=== PATIENT | female | born 1970 | race Caucasian/White ===

== ENCOUNTER 2021-01-11 14:27 | Emergency (ER) | payer BC ==
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
== END 2021-01-11 15:29 | disposition home or self-care (01) ==
LOC: JD.ED 14:27
DX: Z02.83 Encounter for blood-alcohol and blood-drug test (principal); Z88.5 Allergy status to narcotic agent
CPT/HCPCS: 99282

== ENCOUNTER 2021-04-11 07:48 | Day surgery (SDC) | payer BC ==
[~2021-04-11 07:48] MED LIST: Lactated Ringers 1,000 ML IV SCH; Lidocaine 1%/Sod Bicarbonate in NS 8.4% 1 ML Syringe IDERM PRN; Sodium Chloride 0.9% 10 ML Syringe FLUSH PRN
[2021-04-11] MEDS ORDERED: Midazolam 1 MG/ML 2 ML SDV ONE (09:16)
[2021-04-11] MEDS ORDERED: Propofol 200 MG/20 ML SDV ONE ×2 (09:16→09:27)
--- NOTE | 2021-04-11 09:50 | PCM.PREANE ---
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.) Cardiovascular: No Symptoms Gastrointestinal: No Symptoms (GERD), Abdominal Pain (history of H Pylori with some sensitivity still present), Difficulty Swallowing Neurological: No Symptoms (Back pain/scoliosis/fibromyalgia/ Yuliana-Danios syndrome-connective tissue disorder.), Headache, Tingling (left shoulder with neck strain) Other: Reports: None, Sinus Problem (Allergic rhinitis), Neck Pain, Depression (history of sucicide attempt.), Anxiety - Physical Assessment NPO Status Date: 04/10/21 NPO Status Time: 22:30 Vital Signs: HR: 56 B/P: 98/60 Sat: 97% Resp: 12 Temp: 97.5 Height: 1.65 m Weight: 75 kg ASA Class: 2 Mental Status: Alert & Oriented x3 Airway Class: Mallampati = 2 Dentition: Reports: Normal Dentition, Caries Thyro-Mental Finger Breadths: 3 Mouth Opening Finger Breadths: 3 ROM/Head Extension: Full Lungs: Clear to Auscultation, Normal Respiratory Effort Cardiovascular: Regular Rate, Regular Rhythm, No Murmurs - Lab Values: All labs reviewed and noted and within acceptable ranges to proceed with procedure. - Allergies Allergies/Adverse Reactions: Allergies Allergy/AdvReac Type Severity Reaction Status Date / Time codeine Allergy Itching Verified 01/11/21 14:51 - Anesthesia Plan Pre-Op Medication Ordered: None - Acknowledgements Anesthesia Type Planned: MAC Pt an Appropriate Candidate for the Planned Anesthesia: Yes Alternatives and Risks of Anesthesia Discussed w Pt/Guardian: Yes Pt/Guardian Understands and Agrees with Anesthesia Plan: Yes PreAnesthesia Questionnaire HEENT History: Reports: Cataract, Other (See Below) Other HEENT History: Allergic rhinitis Cardiovascular History: Reports: None Respiratory History: Reports: Asthma Other Respiratory History: Exercise-induced bronchoconstriction Gastrointestinal History: Reports: GERD, Helicobacter Pylori Other Gastrointestinal History: Esophageal polyp Genitourinary History: Reports: None COBOL PROGRAMMER History: Reports: Dysfunctional Uterine Bleeding, Other (See Below) Other OB/BYN History: Tubal ligation, pelvic pain, vaginal d/c Musculoskeletal History: Reports: Arthritis, Back Pain, Chronic, Fibromyalgia Other Musculoskeletal History: Ehler's-Danios Syndrome, hypermobile joints Neurological History: Reports: Migraines Psychiatric History: Reports: Anxiety, Depression, Suicide Attempt Other Psychiatric History: ETOH abuse, sleep difficulties Endocrine/Metabolic History: Reports: None Hematologic History: Reports: None Immunologic History: Reports: None Oncologic (Cancer) History: Reports: None - Infectious Disease History Infectious Disease History: Reports: Chicken Pox - Past Surgical History Head Surgeries/Procedures: Reports: None HEENT Surgical History: Reports: None Cardiovascular Surgical History: Reports: None Respiratory Surgical History: Reports: None GI Surgical History: Reports: Appendectomy, EGD Female Surgical History: Reports: None Endocrine Surgical History: Reports: None Neurological Surgical History: Reports: None Oncologic Surgical History: Reports: None - SUBSTANCE USE Tobacco Use Within Last Twelve Months: Smokeless Tobacco Second Hand Smoke Exposure: No Recreational Drug Use History: No - HOME MEDS Home Medications: Home Meds FLUoxetine HCl [Prozac] 20 mg PO DAILY 01/11/21 [History] Gabapentin [Neurontin] 600 mg PO BEDTIME 01/11/21 [History] Acetaminophen [Tylenol] 650 mg PO BID PRN 04/10/21 [History] Albuterol [Ventolin HFA] 1 puff .XX Q4H PRN 04/10/21 [History] Albuterol [Ventolin HFA] 1 puff INH Q4H PRN 04/10/21 [History] Cholecalciferol (Vitamin D3) [Vitamin D] 10,000 unit PO DAILY 04/10/21 [History] Cyclobenzaprine [Flexeril] 5 - 10 mg PO BEDTIME PRN 04/10/21 [History] Lidocaine [Lidocaine 5%] 1 patch TOP DAILY PRN 04/10/21 [History] Magnesium 600 mg PO DAILY 04/10/21 [History] Multivitamin 1 tab PO DAILY 04/10/21 [History] Omeprazole 40 mg PO DAILY 04/10/21 [History] traZODone 50 mg PO BEDTIME 04/10/21 [History] - CURRENT (IN HOUSE) MEDS Current Meds: Current Medications Lactated Ringer's (Ringers, Lactated) 1,000 mls @ 125 mls/hr IV ASDIRECTED SUSHMA Stop: 04/11/21 18:00 Lidocaine/Sodium Bicarbonate (Lidocaine 1%/Sod Bicarbonate In Ns 8.4% 1 Ml Syringe) 0.25 ml IDERM ONETIME PRN PRN Reason: Prior to IV Start Stop: 04/11/21 18:00 Sodium Chloride (Sodium Chloride 0.9% 10 Ml Syringe) 10 ml FLUSH ASDIRECTED PRN PRN Reason: Keep Vein Open Stop: 04/11/21 18:00 Discontinued Medications Midazolam HCl (Midazolam 1 Mg/Ml 2 Ml Sdv) Confirm Administered Dose 2 mg .ROUTE .STK-MED ONE Stop: 04/11/21 09:17 Propofol (Propofol 200 Mg/20 Ml Sdv) Confirm Administered Dose 200 mg .ROUTE .STK-MED ONE Stop: 04/11/21 09:17 Propofol (Propofol 200 Mg/20 Ml Sdv) Confirm Administered Dose 200 mg .ROUTE .STK-MED ONE Stop: 04/11/21 09:28
--- NOTE | 2021-04-11 10:28 | PCM.PRNOTE ---
- Free Text/Narrative Note: Date: 04/11/2021 Procedure: diagnostic esophagogastroduodenoscopy Indication: dysphagia in patient with history of reflux esophagitis and esophageal squamous papilloma Endoscopist: Jose Roman MD Findings: small hiatal hernia with gross appearance of mild distal esophageal inflammation. Detailed Report: The patient was taken to the endoscopy suite and placed in left lateral decubitus position. Timeout was performed and monitored anesthesia care was initiated. A bite-block was placed. The endoscope was inserted into the mouth and advanced to the second portion of the duodenum with ease. Duodenal mucosa appeared normal. The scope was withdrawn into the stomach and gastric mucosa was carefully inspected. There is no evidence of gross inflammatory change or ulceration. On retroflexion, there appeared to be a very small sliding hiatal hernia. The scope was withdrawn into the distal esophagus. The Z-line appeared normal, however there appeared to be some minor gross inflammatory change of the distal esophagus just proximal to the Z-line. Biopsies were obtained of distal esophageal mucosa with cold forceps. The scope was slowly withdrawn and the esophagus was carefully inspected. No mucosal lesion was really appreciated, although there appeared to be small benign-appearing flat polypoid lesion which was biopsied with cold forceps. This was at about the mid esophagus. Air was suctioned from the stomach prior to withdrawal of the scope. Patient tolerated the procedure well.
--- NOTE | 2021-04-11 10:33 | PCM48HPAN ---
Post Anesthesia Note - EVALUATION WITHIN 48HRS OF ANESTHETIC Vital Signs in Normal Range: Yes Patient Participated in Evaluation: Yes Respiratory Function Stable: Yes Airway Patent: Yes Cardiovascular Function Stable: Yes Hydration Status Stable: Yes Pain Control Satisfactory: Yes Nausea and Vomiting Control Satisfactory: Yes Mental Status Recovered: Yes
== END 2021-04-11 11:40 | disposition home or self-care (01) ==
LOC: JD.SDS 07:48
PROVIDERS: ATTEND Surgery
DX: K20.0 Eosinophilic esophagitis (principal); K44.9 Diaphragmatic hernia without obstruction or gangrene; G47.9 Sleep disorder, unspecified; J45.909 Unspecified asthma, uncomplicated; Z88.6 Allergy status to analgesic agent; Z79.899 Other long term (current) drug therapy
CPT/HCPCS: 43239; J2250; J2704; J7120; 00731

== ENCOUNTER 2021-09-28 08:22 | Emergency (ER) | payer BC ==
[2021-09-28] MEDS ORDERED: Sodium Chloride 0.9% 1,000 ML IV ONE (09:09)
[2021-09-28] MEDS ORDERED: Sodium Chloride 0.9% 10 ML Syringe FLUSH PRN (09:10)
[2021-09-28] MEDS ORDERED: Ondansetron 4 MG/2 ML SDV IVPUSH ONE (09:23)
[2021-09-28 09:51] LABS: CORONAVIRUS COVID-19 NAA NEGATIVE (NEGATIVE)
[2021-09-28] MEDS ORDERED: Acetaminophen 325 MG Tab PO ONE (10:03)
[2021-09-28] MEDS ORDERED: cefTRIAXone 2 GM in Sodium Chloride 0.9% 100 ML IV ONE (10:55)
[2021-09-28] MEDS ORDERED: Metoclopramide 10 MG/2 ML SDV IVPUSH ONE (14:30)
== END 2021-09-28 14:40 | disposition home or self-care (01) ==
LOC: JD.ED 08:22
DX: N30.00 Acute cystitis without hematuria (principal); J45.909 Unspecified asthma, uncomplicated; K21.9 Gastro-esophageal reflux disease without esophagitis; Z88.5 Allergy status to narcotic agent; Z79.899 Other long term (current) drug therapy; Z20.822 Contact with and (suspected) exposure to COVID-19
CPT/HCPCS: 0240U; 36415; 71046; 74176; 80053; 81001; 83605; 85025; 87040; 87077; 87086; 87088; 87154; 87186; 96365; 96375; 99284; A9270; J0696; J2405; J2765; J7030

== ENCOUNTER 2021-09-29 16:27 | Inpatient (IN) | payer BC ==
[2021-09-29] MEDS ORDERED: Albuterol/Ipratropium 3.0-0.5 MG/3 ML Neb Soln NEB PRN (18:47)
[2021-09-29] MEDS ORDERED: Albuterol 6.7 GM Inhaler INH PRN (18:53)
[2021-09-29] MEDS ORDERED: hydrALAZINE 20 MG/ML SDV IVPUSH PRN (18:56)
[2021-09-29] MEDS: cefTRIAXone 1 GM in Sodium Chloride 0.9% 100 ML IV SCH (19:56)
[2021-09-29] MEDS ORDERED: Gabapentin 600 MG Tab PO SCH (21:00)
[2021-09-29] MEDS ORDERED: traZODone 50 MG Tab PO SCH (21:00)
[2021-09-29] MEDS: Acetaminophen 325 MG Tab PO PRN (21:04)
[2021-09-29] MEDS: Sodium Chloride 0.9% 1,000 ML IV SCH (21:47)
[2021-09-30] MEDS: oxyCODONE 5 MG Tab PO PRN ×3 (00:29→23:43)
[2021-09-30] MEDS: Morphine 2 MG/ML SYRINGE IVPUSH PRN ×2 (01:58→07:25)
[2021-09-30] MEDS ORDERED: Ferrous Sulfate 324 MG Tab.EC PO SCH (07:00)
[2021-09-30] MEDS ORDERED: Magnesium Hydroxide 400 MG/5 ML Susp 30 ML Cup PO ONE (08:41)
[2021-09-30] MEDS: FLUoxetine 20 MG Cap PO SCH (08:56)
[2021-09-30] MEDS ORDERED: Docusate Sodium 100 MG Cap PO PRN (10:10)
[2021-09-30] MEDS ORDERED: Lactulose Soln 10 GM/15 ML 30 ML UD Cup PO PRN (10:10)
[2021-09-30] MEDS: Promethazine 12.5 MG in Sodium Chloride 0.9% 50 ML IV PRN (10:12)
[2021-09-30] MEDS: Enoxaparin 40 MG/0.4 ML Syringe SUBCUT SCH (10:27)
[2021-09-30] MEDS ORDERED: Bisacodyl 10 MG Supp RECTAL ONE (10:45)
[2021-09-30] MEDS: Sodium Chloride 0.9% 1,000 ML IV SCH (11:41)
[2021-09-30] MEDS: Ferrous Sulfate 324 MG Tab.EC PO SCH ×2 (12:26→18:25)
[2021-09-30] MEDS: Pantoprazole 40 MG Tab.CR PO SCH (12:26)
[2021-09-30] MEDS: Multivitamin Tab PO SCH (12:26)
[2021-09-30] MEDS: Cholecalciferol (Vitamin D3) 5,000 UNIT Tab PO SCH (12:27)
[2021-09-30] MEDS: Acetaminophen 325 MG Tab PO PRN ×2 (15:33→23:44)
[2021-09-30] MEDS: cefTRIAXone 1 GM in Sodium Chloride 0.9% 100 ML IV SCH (18:25)
[2021-09-30] MEDS: traZODone 50 MG Tab PO SCH (21:28)
[2021-10-01] MEDS: Sodium Chloride 0.9% 1,000 ML IV SCH (00:37)
[2021-10-01] MEDS ORDERED: cefTRIAXone 2 GM in Sodium Chloride 0.9% 100 ML IV SCH (09:00)
[2021-10-01] MEDS: FLUoxetine 20 MG Cap PO SCH (09:01)
[2021-10-01] MEDS: Multivitamin Tab PO SCH (09:01)
[2021-10-01] MEDS: Cholecalciferol (Vitamin D3) 5,000 UNIT Tab PO SCH (09:02)
[2021-10-01] MEDS: Pantoprazole 40 MG Tab.CR PO SCH (09:02)
[2021-10-01] MEDS: Ferrous Sulfate 324 MG Tab.EC PO SCH ×2 (09:02→17:36)
[2021-10-01] MEDS: Enoxaparin 40 MG/0.4 ML Syringe SUBCUT SCH (09:03)
[2021-10-01] MEDS: Levofloxacin/Dextrose 5%-Water 750 MG in Premix Bag 1 BAG IV SCH (12:56)
[2021-10-01] MEDS: oxyCODONE 5 MG Tab PO PRN (16:15)
[2021-10-01] MEDS: Promethazine 12.5 MG in Sodium Chloride 0.9% 50 ML IV PRN (16:16)
[2021-10-01] MEDS: Acetaminophen 325 MG Tab PO PRN (20:17)
[2021-10-01] MEDS: traZODone 50 MG Tab PO SCH (20:30)
[2021-10-02] MEDS: FLUoxetine 20 MG Cap PO SCH (08:10)
[2021-10-02] MEDS: Pantoprazole 40 MG Tab.CR PO SCH (08:10)
[2021-10-02] MEDS: Ferrous Sulfate 324 MG Tab.EC PO SCH (08:10)
[2021-10-02] MEDS: Cholecalciferol (Vitamin D3) 5,000 UNIT Tab PO SCH (08:10)
[2021-10-02] MEDS: Multivitamin Tab PO SCH (08:11)
[2021-10-02] MEDS: Enoxaparin 40 MG/0.4 ML Syringe SUBCUT SCH (08:11)
[2021-10-02] MEDS: Levofloxacin/Dextrose 5%-Water 750 MG in Premix Bag 1 BAG IV SCH (11:39)
== END 2021-10-02 15:52 | disposition home or self-care (01) | DRG 463 ==
LOC: JD.MS 17:20
PROVIDERS: ADMIT Internal Medicine; ATTEND Internal Medicine
DX: N39.0 Urinary tract infection, site not specified (principal); R78.81 Bacteremia; B96.20 Unspecified Escherichia coli [E. coli] as the cause of diseases classified elsewhere; D50.9 Iron deficiency anemia, unspecified; R91.8 Other nonspecific abnormal finding of lung field; Z20.822 Contact with and (suspected) exposure to COVID-19; J45.909 Unspecified asthma, uncomplicated; K21.9 Gastro-esophageal reflux disease without esophagitis; M54.9 Dorsalgia, unspecified; Z88.5 Allergy status to narcotic agent; Z79.899 Other long term (current) drug therapy; G89.29 Other chronic pain; Z98.49 Cataract extraction status, unspecified eye; Z90.49 Acquired absence of other specified parts of digestive tract
CPT/HCPCS: 36415; 80053; 81001; 81025; 82272; 82947; 83735; 85025; 85045; 85610; 86140; 86850; 86900; 86901; 86922; 87040; 87086; A9270-GY; J0696; J1956; J2270; J2550; J7030

== ENCOUNTER 2023-01-22 07:58 | Day surgery (SDC) | payer BC ==
[~2023-01-22 07:58] MED LIST changes: +Sodium Chloride 0.9% 10 ML Syringe FLUSH SCH
[2023-01-22] MEDS ORDERED: Propofol 200 MG/20 ML SDV ONE ×3 (09:00→10:17)
[2023-01-22] MEDS ORDERED: fentaNYL 100 MCG/2 ML SDV ONE (09:01)
== END 2023-01-22 11:10 | disposition home or self-care (01) ==
LOC: JD.SDS 07:58
PROVIDERS: ATTEND Surgery
DX: Z12.11 Encounter for screening for malignant neoplasm of colon (principal); D12.7 Benign neoplasm of rectosigmoid junction; D12.2 Benign neoplasm of ascending colon; D12.0 Benign neoplasm of cecum; D12.4 Benign neoplasm of descending colon; D12.3 Benign neoplasm of transverse colon; D64.9 Anemia, unspecified; F41.9 Anxiety disorder, unspecified; M19.90 Unspecified osteoarthritis, unspecified site; J45.909 Unspecified asthma, uncomplicated; H26.9 Unspecified cataract; F32.A Depression, unspecified; G43.909 Migraine, unspecified, not intractable, without status migrainosus; Q79.60 Ehlers-Danlos syndrome, unspecified; J45.990 Exercise induced bronchospasm; K21.9 Gastro-esophageal reflux disease without esophagitis; Z88.5 Allergy status to narcotic agent; Z88.1 Allergy status to other antibiotic agents; Z90.49 Acquired absence of other specified parts of digestive tract; Z98.51 Tubal ligation status; Z98.1 Arthrodesis status; Z80.0 Family history of malignant neoplasm of digestive organs; F17.290 Nicotine dependence, other tobacco product, uncomplicated
CPT/HCPCS: 45385; J2704; J3010; J7120; 00811